=== PATIENT | female | born 2000 | race Caucasian/White ===

== ENCOUNTER 2025-01-21 14:23 | Outpatient (CLI) | payer BC, SELFPAY ==
[2025-01-22 19:09] LABS: Strep B DNA Probe Negative (Negative)
[2025-01-22 21:06] LABS: Strep B Susceptibility Needed? No
== END 2025-01-21 14:24 | disposition home or self-care (01) ==
PROVIDERS: Visit Provider Registered Nurse
DX: Z34.83 Encounter for supervision of other normal pregnancy, third trimester (principal); Z67.40 Type O blood, Rh positive
CPT/HCPCS: 84443; 86703; 86900; 86901; 87081; 87653

== ENCOUNTER 2025-02-06 17:40 | Inpatient (IN) | payer BC, SELFPAY ==
[2025-02-06] VITALS (57 sets, daily range): BP systolic 91–138; BP diastolic 54–76; PULSE 69–108; RESP 16–20; TEMP 36.6–36.9; O2SAT 93–100; BMI 51.1
[2025-02-06 17:25] LABS: Appearance Urine Slightly Cloudy (Clear); Bilirubin Urine Negative (Negative); Blood Urine Negative (Negative); Color Urine Yellow (Yellow); Glucose Urine Negative (Negative); Ketones Urine Negative (Negative); Leukocyte Esterase Urine 1+ (Negative); Nitrite Urine Negative (Negative); Protein Urine Trace (Negative); Urobilinogen Urine 0.2 (0.2-1.0)
[2025-02-06 17:31] LABS: Amnisure Rom* POSITIVE
[2025-02-06 17:35] LABS: RBC Urine 0-2 (0-2); Squamous Epithelial Cell Urine Moderate (None-Few)
[2025-02-06 17:36] LABS: Bacteria Urine Few
--- NOTE | 2025-02-06 18:04 | W.PM.LDBA ---
Subjective History of Present Illness Narrative: Patient is being admitted to Labor and Delivery for PROM at term. She is a 24 year old -0-0-1 woman at 37 weeks, 5 days gestation. She reports loss of fluid at around 6 PM on 02/05. Her AmniSure is positive here today. She is not having contractions. Her full history and physical was dictated by Dr. Razo on 01/29/25. Please see this for details. Specific Issues/Plans G 2 P 1001 Spouse: Jose Manuel Daughter: Carmita Baby: Boy! Gallito H&P by [facility] on 01/29/25 TRANSFER of Care from [facility] at 35 & 3/7 weeks gestation on 01/21/25 Need varicella antibody testing: [] # Desires permanent sterilization [email or web address] insurance # Obesity. Pre- BMI 46 Taking daily low dose aspirin Level 2 US: See imaging below Never made appt for Nutrition consult Anesthesia referral placed Weekly testing starting at 34 weeks Growth US at 28 and 34 weeks Delivery during week 39 # Hypothyroidism. Taking 188mcg levothyroxine. Follows with Endocrinology. Needs to establish with new [employer] or Primary Care Provider, as hers is out of network. 08/28/2024: TSH 2.22 10/08/2024 TSH 1.92 11/28/2024: TSH 2.05 /01/2024: TSH 1.8 # History of hemorrhage Quantity blood loss 1661 mL. Treated with Methergine, Hemabate, Cytotec, Loraine and vaginal packing. Removed PPD 1 w/ no further excessive bleeding optimize iron stores in Consider TXA at time of delivery #?Anemia per patient. Taking qod iron supplement Hgb on 01/21: 11.9. # Mesocardia US on 11/20 technically challenging. Slight meso cardia, otherwise normal echocardiogram. Plan: No further cardiology follow-up is needed unless new concerns arise. Continue routine care with primary Ob. From cardiology standpoint, the patient may deliver at the center of her choice with routine care for baby after . Following hospital discharge, baby should have an echocardiogram along with outpatient cardiology visit within the 1st few months. # Possible macrosomia: EFW 98%, AC greater than 99%. Projected EFW at 39 weeks: 4415 gr. Growth next visit at 38 weeks Previous medical records show: 07/16/2024: Chlamydia negative, gonorrhea negative, Antibody screen negative, hemoglobin 12.1, platelets 377, hemoglobin A1c 5.2, treponemal nonreactive, hepatitis-B surface antigen nonreactive, hepatitis-B surface antibody nonreactive, hepatitis-B core antibody nonreactive, hepatitis-C antibody nonreactive, rubella immune, urine culture less than 10,000 CFU per mL mixed bacterial growth, 08/09/2024 NIPT/savage: Low risk 08/28/2024: TSH 2.22 10/08/2024 TSH 1.92 11/28/2024: TSH 2.05 12/18/2023: TSH 1.8 11/28/2024: one hour glucose: 100, Hemoglobin 10.7, platelets 288, Syphilis negative 08/22/2022: Pap smear NILM 12/26/2024: Tdap Ultrasounds: 07/15/2024: Single IUP, 8 weeks 3 days. EHR 178 be p.m.. 08/20/2024: [facility] [place] first-trimester ultrasound: Intrauterine at 13 weeks 3 days. The nuchal area appears normal. Ultrasound agrees with assigned LILLIAN 02/22/2025. anatomy appears normal for gestational age. Image quality and detail limited by gestational age. Inadequate/grossly normal views noted above. No adnexal masses identified. Recommendations: An IPS was low risk. All women should be offered MS AFP 15-18 weeks. An early anatomic survey has up to 60-70% detection rate for anomalies. The above survey is reassuring. A detailed exam with FE near 20 weeks is still recommended due to BMI. 10/14/2024: [facility] [place] OB detailed anatomy: Intrauterine at 21 weeks 3 days. None of the anomalies commonly detected by ultrasound were evident in the detailed anatomic survey described above. Inadequate views noted above. echocardiogram appears normal in limited views obtained. No markers for aneuploidy seen. biometry is consistent with gestational age. The amniotic fluid volume appeared normal. Normal cervical length. No evidence of placenta previa. Recommendations: Follow-up [facility] [place] ultrasound at 26 weeks to finish anatomic survey and monitor growth. Subsequent growth ultrasounds every 4-6 weeks due to pre gravid BMI greater than 40. Consider weekly testing starting at 34 weeks due to pre gravid BMI greater than 40. Continue routine care with primary OB provider. 11/12/2024: [facility] [place] Ob growth ultrasound: Intrauterine at 25 weeks 3 days. Appearance of meso cardia (cardiac axis 22 deg) and dextro position. CTCR 0.51. No other anomalies identified; specifically, diaphragm and lung tissue appear normal to extent seen, but visualization is technically challenging due to maternal habitus and positioning. biometry is consistent with gestational age. The amniotic fluid volume appeared normal. No evidence of placenta previa. Recommendations: Please see separate note for details of counseling. echocardiogram by Pediatric Cardiology scheduled 11/20/2024. Follow-up ultrasound with [facility] [place] at 30 weeks to monitor growth and attempt completion of anatomic survey. Anticipate subsequent growth ultrasounds at 34-36 weeks. Weekly testing starting at 34 weeks due to pre gravid BMI greater than 40. Continue routine care with OB provider. 11/20/2024: Technically challenging study limited by maternal body habitus and position. Some views suggest slight meso cardia. Stomach leftward. Atrial situs solitus. Atrioventricular concordance and ventriculoarterial concordance. Biphasic in flow across both the tricuspid and mitral valves. No tricuspid or mitral insufficiency. Widely patent aortic valve and pulmonary valve, normal velocity. Patent foramen ovale with normal right toleft flow. Normal three vessel view with left aortic arch. Difficult visualization of aortic arch, but appears to be widely patent aortic arch in sagittal images. At least 1 left and 1 right pulmonary vein are seen returning to the left atrium by color and spectral Doppler. The superior vena cava and inferior vena cava drain into the right atrium. Normal ductus venous waveform obtained today. Qualitatively normal cardiac chamber size, wall thickness, and by ventricular contractility. No pericardial or pleural effusion. Normal heart rate and rhythm. Color and spectral Doppler were performed. 12/17/2024: [facility] [place] follow-up growth: Intrauterine at 30 weeks 3 days. No anomalies noted. Follow-up anatomic views appear normal. biometry is large for gestational age. The amniotic fluid volume appeared normal. No evidence of placenta previa. Recommendations: [facility] [place] growth ultrasound at 34 weeks. Weekly testing starting at 34 weeks due to pre gravid BMI greater than 40. Continue routine care with primary Ob 01/09/2025: [facility] [place] follow-up growth intrauterine at 33 weeks 5 days. No major anomalies noted. Mild appearance of meso cardia but measures within normal limits. The anatomic survey was completed on today's exam. biometry is large for gestational age. EFW 98 percentile pain, AC greater than 99%. Projected EFW at 39 weeks: 4415 gr. Amniotic fluid appeared normal. No evidence of placenta previa. Recommendation: Weekly testing starting at 34 weeks due to pre gravid BMI greater than 40. Per Pediatric Cardiology, baby to have an echocardiogram along with outpatient cardiology visit in the 1st few months of life. Continue routine care with primary Ob. OB - Problem Based A/P Additional Plan (1) PROM (premature rupture of membranes): Status: Acute (2) macrosomia during in third trimester: Status: Acute (3) cardiac anomaly complicating , antepartum: Problem details: Possible meso cardia Status: Acute (4) History of hemorrhage: Status: Acute Plan 1. PPROM at term. Favorable cervix. Rupture of forebag on exam with copious fluid. Begin pitocin for augmentation of labor. Continuous monitoring. Epidural as desired. 2. History of hemorrhage. CBC, type and cross 2 units now. Will plan for TXA and quick use of other uterotonic agents after delivery if bleeding warrants 3. Possible macrosomia. Blessedly, she is in labor prior to 38 weeks. We will avoid operative vaginal delivery for arrest of descent. 4. mesocardia. Defer to peds for echo as . Delivery/Labor/Induction Plan Induction method: per pitocin protocol OB Exam Physical Exam Vital signs: Temp Pulse Resp BP Pulse Ox 98.5 F 90 18 110/57 L 98 02/06/25 16:41 02/06/25 16:52 02/06/25 16:41 02/06/25 16:52 02/06/25 16:53 Narrative: Physical exam: General: No acute distress Psych: Alert and oriented x3, full affect HEENT: Normocephalic, atraumatic Heart: Regular rate and rhythm, no murmur rub or gallop Lungs: Clear to auscultation bilaterally Abdomen: Soft, nontender, gravid, large pannus overhanging lower abdomen. Lower extremities: No edema or erythema Pelvic exam: Cervix 3 / 80 / -1 / midposition / soft, vertex Forebag ruptures on exam, spilling copious clear fluid Unable to trace heart rate with Novii. Scalp lead placed wtih pateit consent. Basline 140 / accelerations to 180 / no decelerations / moderate variability
[2025-02-06 19:12] LABS: Basophils Absolute Auto 0.02 K/uL (0.00-0.30); Basophils Percent Auto 0.2 % (0.0-3.0); Eosinophils Absolute Auto 0.09 K/uL (0.00-0.50); Eosinophils Percent Auto 0.9 % (0.0-7.0); Hematocrit 37.2 % (33.0-51.0); Hemoglobin* 12.4 gm/dL (12.0-16.0); Immature Granulocytes Abs Auto 0.16 K/uL (0.00-0.30); Immature Granulocytes Pct Auto 1.6 %; Lymphocytes Absolute Auto 2.28 K/uL (0.90-2.90); Lymphocytes Percent Auto 22.6 % (20-44); Mean Corpuscular HGB Conc 33 gm/dL (32-36); Mean Corpuscular Hemoglobin 29 pg (26-34); Mean Corpuscular Volume 86 fL (80-100); Monocytes Percent Auto 7.2 % (0.0-11.0); Neutrophils Absolute Auto 6.83 K/uL (1.7-7.0); Neutrophils Percent Auto 67.5 % (42.0-72.0); Platelet Count* 288 K/uL (140-440); RDW Coefficient of Variation % 13.8 % (11.5-15.5); Red Blood Count 4.33 m/uL (4.00-5.20); White Blood Count* 10.11 K/uL (4.50-11.00)
[2025-02-06 19:13] LABS: Slide Review Reflex No
[2025-02-06] MEDS: OXYTOCIN 30 unit/500 ML in NS 30 UNIT/500 ML BAG IVPB (19:46)
[2025-02-06] MEDS: LACTATED RINGERS 1000 ML 1,000 ML 125 ML IV (19:46)
[2025-02-06] MEDS: ROPIVACAINE 0.2% 100 ml 100 ML 12 MG EPIDURAL (21:39)
[2025-02-06] MEDS: LIDOCAINE 2% (PF) 5 ML VIAL EPIDURAL (21:40)
[2025-02-06] MEDS: ROPIVACAINE 0.2 % PF 10 ML INJ 20 MG EPIDURAL (21:40)
--- NOTE | 2025-02-06 21:45 | PM.ANBPRC ---
PFSH PFS Surgical History (Updated 01/24/25 @ 12:49 by Stephanie Barba, BEAU) Cr[place] teeth extracted ?K08.409 - Partial loss of teeth, unspecified cause, unspecified class (ICD-10) S/P LASIK surgery ?Z98.890 - Other specified postprocedural states (ICD-10) Social History (Updated 01/21/25 @ 14:10 by Kelli Austin MA) What is your current living situation?: I presently have a place to live Problems where you live: no known problems In the past 12 months, utilities in danger of being shut off: no In past 12 months, lack of transportation kept you from medical appts, meetings, work, or getting things needed for daily living: no In the past 12 mos, have been you worried that your food would run out before you had money to buy more?: never true In the past 12 mos, the food you bought just didn't last and you didn't have money to buy more?: never true Smoking Status: Former smoker How often does anyone, including family, friends and others, physically hurt you: never How often does anyone, including family, friends and others, insult or talk down to you: never How often does anyone, including family, friends and others, threaten you with harm: never How often does anyone, including family, friends and others, scream or curse at you: never Meds Home Medications and Allergies Home Medications ?Medication ?Instructions ?Recorded ?Confirmed ?Type aspirin 81 mg tablet,delayed 81 mg PO QDAY 01/21/25 02/06/25 History release (Adult Low Dose Aspirin) docosahexaenoic acid 200 mg 200 mg PO DAILY 01/21/25 02/06/25 History capsule ( DHA) levothyroxine 100 mcg tablet 100 mcg PO DAILY 01/21/25 02/06/25 History levothyroxine 88 mcg tablet 88 mcg PO DAILY 01/21/25 02/06/25 History ferrous gluconate 240 mg (27 mg 240 mg PO .every other day 02/05/25 02/06/25 History iron) tablet (Ferate) Allergies Allergy/AdvReac Type Severity Reaction Status Date / Time No Known Drug Allergies Allergy Verified 02/06/25 17:19 Results Labs Labs: Laboratory Results - last 24 hr 02/06/25 02/06/25 17:03 19:00 WBC 10.11 RBC 4.33 Hgb 12.4 Hct 37.2 MCV 86 MCH 29 MCHC 33 RDW Coeff of Gale 13.8 Plt Count 288 Neut % (Auto) 67.5 Lymph % (Auto) 22.6 [place] % (Auto) 7.2 Eos % (Auto) 0.9 Baso % (Auto) 0.2 Neut # (Auto) 6.83 Lymph # (Auto) 2.28 [place] # (Auto) 0.70 Eos # (Auto) 0.09 Baso # (Auto) 0.02 Abs Immat Gran (auto) 0.16 Imm/Tot Granulo (auto) 1.6 Urine Color Yellow Urine Appearance Slightly Cloudy A Urine pH 7.0 Ur Specific [place] 1.020 Urine Protein Trace A Urine Glucose (UA) Negative Urine Ketones Negative Urine Blood Negative Urine Nitrite Negative Urine Bilirubin Negative Urine Urobilinogen 0.2 Ur Leukocyte Esterase 1+ A Urine RBC 0-2 Urine WBC 5-10 A Ur Squamous Epith Cells Moderate A Urine Bacteria Few A Membrane Rupture POSITIVE Blood Type O Positive Antibody Screen NEGATIVE Crossmatch (AHG) See Detail Vital Signs Vital Signs: Last Vital Signs Temp 98.5 F 02/06/25 16:41 Pulse 93 02/06/25 21:44 Resp 18 02/06/25 16:41 BP 130/65 02/06/25 21:44 Pulse Ox 98 02/06/25 21:42 Weight: 135.171 kg Height: 162.56 cm Anesthesia Procedures Epidural Insertion Patient Location: OB Start Time: 21:00 Stop Time: 21:46 Start Date: 02/06/25 Stop Date: 02/06/25 Reason for Block: procedure for pain Patient Position: sitting Performed By: Emmanuel Ferreira Preanesthetic Checklist: IV checked, risks and benefits discussed, surgical consent, monitors and equipment checked, pre-op evaluation, timeout performed and anesthesia consent Prep: chlorhexidine gluconate Monitoring: blood pressure monitoring, continuous pulse oximetry and heart rate Approach: midline Vertebral Space: lumbar (1-5) Epidural Technique: BRUNO air Needle Type: Tuohy needle Injection Technique: continuous catheter Needle gauge: 17 Needle Length (cm): 10 cm Needle Insertion Depth (cm): 9 Catheter Gauge: 19 Catheter Type: multi-orifice Catheter at skin depth (cm): 15 Test Dose Result: negative and lidocaine 1.5% with epinephrine 1 to 200,000
[2025-02-06] MEDS: LACTATED RINGERS 1000 ML 1,000 ML 955 ML IV (21:49)
[2025-02-06] MEDS: ONDANSETRON 2 MG/ML inj 4 MG IV (22:38)
[2025-02-07] VITALS (34 sets, daily range): BP systolic 94–128; BP diastolic 51–76; PULSE 68–101; RESP 16–20; TEMP 36.5–36.8; O2SAT 92–100
[2025-02-07] MEDS: OXYTOCIN 30 unit/500 ML in NS 30 UNIT/500 ML BAG 300 UNIT IVPB (01:40)
[2025-02-07] MEDS: TRANEXAMIC ACID 100 MG/ML INJ 1000 MG IV (01:44)
[2025-02-07] MEDS: miSOPROStoL 800 MCG/4 TABLET PR (02:05)
--- NOTE | 2025-02-07 02:30 | W.PM.VAGDEL1 ---
Procedure Delivery date: 02/07/25 Procedure Done: [employer] Procedure Details: The patient is a 24 year-old G 2 P 1-0-0-1 woman admitted on 02/06/2025 at 37 Weeks, 5 Days gestation for apparent premature rupture membranes at term.? Cervical exam on admission was 3 / 80 / -1 / midposition / soft with membranes palpably intact but with a positive AmniSure test, in vertex presentation.? She had no regular contractions.? heart rate demonstrated baseline 140 bpm with moderate variability, positive accelerations, none decelerations; a category 1 tracing.? She reported leakage of fluid beginning around 6:30 p.m. on 02/05/2025. Rupture of forebag occurred at time of admission exam with clear fluid noted. ? Labor Analgesia:? Epidural ? Pitocin:? Yes ? Complete:? 1:12 a.m. on 02/07/2025 ? Pushing:? 1:21 a.m. ? heart tones during second stage were reassuring. ? At 1:42 a.m. a viable male infant delivered in vertex direct OA presentation over small first-degree perineal laceration via spontaneous vaginal delivery.? The infant's head did deliver indirect 0 a presentation, and I had some difficulty in restituting the infant's head with maternal legs flexed and her head down. I opted to deliver the posterior shoulder, which was the 's left, in order to rotate the 's body. This was accomplished easily and quickly. Infant was placed on maternal abdomen.? Cord was clamped and cut after a 30-60 second delay.? Nose and mouth were bulb suctioned.? weight pending.? 8 at 1 minute and 9 at 5 minutes.? Shoulder dystocia: No; the need to deliver the posterior arm came more from positional dystocia.? Nuchal cord: No. ? Placenta delivered spontaneously at 2:04 a.m. with a 3 vessel cord. I was uncertain of the completeness of the placental disc. Given this, and her history of hemorrhage, I opted to manually explore her uterus. I donned a new set of sterile gloves. I did not palpate any obvious placental fragments. She was given 2 g of cefazolin thereafter in prophylaxis against infection. ? Mother and were stable after delivery. ? Lacerations:? Small first-degree perineal, repaired with 3-0 Vicryl. ? Blood loss: 600 mL. Blood loss measurement type: QBL She was given oxytocin after delivery of the infant, as well as tranexamic acid, given her history of hemorrhage. After delivery of the placenta, I opted to also give her 800 mcg of rectal misoprostol. ? Sponge and needles counts are correct. Events: Prolonged Rupture of Membrane Intrapartal Events: Labor Induction Delivery monitor: internal FHT Route of delivery: Laceration description: Perineal - 1st Degree Delivery repair: Vicryl Estimated blood loss (mL): 600 Anesthesia type: Epidural
[2025-02-07] MEDS: CEFAZOLIN 3 GM in 0.9 % SODIUM CHLORIDE Mini-bag 100 ML IVPB (04:12)
[2025-02-07 06:30] LABS: Hemoglobin* 10.8 gm/dL (12.0-16.0)
[2025-02-07] MEDS: ACETAMINOPHEN 500 MG TABLET 1000 MG PO ×2 (07:26→19:24)
[2025-02-07] MEDS: DOCUSATE SODIUM 100 MG CAPSULE PO (08:20)
--- NOTE | 2025-02-07 10:47 | PM.ANPOST ---
Post Anesthesia Note Post Anesthesia Note Patient seen: Inpatient Respiratory Status: adequate Cardiovascular Status: adequate Mental Status: baseline Pain: adequate Temp: baseline Anesthetic awareness: N/A Complications: none Follow care: none
[2025-02-07] MEDS: IBUPROFEN 600 MG TABLET PO (11:27)
[2025-02-07] MEDS: LEVOTHYROXINE 88 MCG TABLET PO (11:31)
[2025-02-07] MEDS: LEVOTHYROXINE 100 MCG TABLET PO (11:32)
[2025-02-08] VITALS: BP 110/74; PULSE 83; RESP 18; TEMP 36.9; O2SAT 97
[2025-02-08 07:05] LABS: Hemoglobin* 10.8 gm/dL (12.0-16.0)
[2025-02-08] MEDS: DOCUSATE SODIUM 100 MG CAPSULE PO (08:11)
[2025-02-08] MEDS: IBUPROFEN 600 MG TABLET PO (08:11)
--- NOTE | 2025-02-08 08:55 | PM.OBDSVD1 ---
DS: Providers Provider Date Seen: 02/08/25 Date of admission: 02/06/25 17:40 Primary care physician: Not a Local Provider Admitting Clinician: Ashley Duarte MD Attending Physician on discharge: Yomi Gonzalez MD DS: Diagnosis Discharge Diagnosis (1) (spontaneous vaginal delivery): Status: Acute (2) Anemia: Status: Acute (3) Hypothyroidism: Status: Acute (4) cardiac anomaly complicating , antepartum: Status: Acute Problem details: Possible meso cardia Exam Narrative: Exam Narrative: VITAL SIGNS: As noted above. GENERAL APPEARANCE: Alert, cooperative female in no acute distress. MOOD & AFFECT: Normal. ABDOMEN: Soft, non-distended and nontender. Well contracted uterus at umbilicus. : Normal lochia. EXTREMITIES: Well perfused. Nontender. Const: Vital Signs, click to edit/add: Vital Signs - 24 hr 02/07/25 13:47 02/07/25 16:45 02/07/25 20:01 Temperature 98.1 F 97.7 F 97.8 F Pulse Rate [Pulse Oximeter] 71 71 72 Respiratory Rate 16 16 18 Blood Pressure [Le ft Arm] 116/76 103/67 94/60 Pulse Oximetry 98 97 97 Oxygen Delivery Me thod Room Air Room Air 02/08/25 00:00 Temperature 98.5 F Pulse Rate [Pulse Oximeter] 83 Respiratory Rate 18 Blood Pressure [Le ft Arm] 110/74 Pulse Oximetry 97 Oxygen Delivery Me thod Room Air OB - DS: Summary Hospital Course Hospital Course: The patient is a 24 year old G 2 P 2002 at 376/7 weeks gestation that was admitted to the Center on 02/06/25 for delivery after premature rupture of membranes. She had an uncomplicated vaginal delivery. She delivered a viable male . She is bottle feeding. the patient has done well. Peripartum Data Infant delivery method: Vaginal Laceration description: Perineal - 1st Degree complications: none [place] Infant Gender: Male Status at Discharge Functional status at discharge: independent ambulation Overall status at discharge: patient is progressing back to baseline Time Spent with Patient Time attestation: Total time spent providing and/or coordinating discharge services: Time spent: Less than 30 minutes Discharge Plan Discharge Disposition: Home, Self-Care Date of Admission: 02/06/25 17:40 Attending Provider on Discharge: Celeste Gonzalez Primary Care Provider: Provider,Not a Local Condition: Stable Anticipated Discharge Date/Time: 02/08/25 08:58 Discharge Medications: New acetaminophen 500 mg Tablet 1,000 mg PO Q6H PRNQty: 30 0RF ibuprofen 600 mg Tablet 600 mg PO Q6H PRNQty: 30 0RF Continued levothyroxine 100 mcg tablet 100 mcg PO DAILY levothyroxine 88 mcg tablet 88 mcg PO DAILY DHA 200 mg capsule 200 mg PO DAILY ferrous gluconate [Ferate] 240 mg (27 mg iron) tablet 240 mg PO .every other day Discontinued aspirin [Adult Low Dose Aspirin] 81 mg tablet,delayed release (DR/EC) 81 mg PO QDAY Discharge Orders: Discharge Order (Routine); Ordered 02/08/25 Ordered By: Celeste Gonzalez Patient Education: OB Vaginal/Bottle Feeding Activity Level: Activity as Tolerated Activity Detail: Nothing vaginally for 6 weeks Discharge Diet: Regular Follow Up Appointments: Provider,Not a Local [Primary Care Provider, Family Practice] Forms: [facility] Info Instructions
[2025-02-08 08:57] VITALS: BP 108/70; PULSE 69; RESP 16; TEMP 36.7; O2SAT 96
[2025-02-08] MEDS: LEVOTHYROXINE 88 MCG TABLET PO (09:02)
[2025-02-08] MEDS: LEVOTHYROXINE 100 MCG TABLET PO (09:02)
[2025-02-08 13:44] LABS: Rapid Plasma Reagin (RPR) Reactive (Non Reactive)
[2025-02-10 08:17] LABS: Treponema pallidum AbTP-PA Non Reactive (Non Reactive)
== END 2025-02-08 10:34 | disposition home or self-care (01) | DRG 560 ==
LOC: OB OUT 17:50 → OB 17:50
PROVIDERS: Admitting Provider Obstetrics & Gynecology; Visit Provider Obstetrics & Gynecology
DX: O42.02 Full-term premature rupture of membranes, onset of labor within 24 hours of rupture (principal); O35.BXX0 Maternal care for other (suspected) fetal abnormality and damage, fetal cardiac anomalies, not applicable or unspecified; O36.63X0 Maternal care for excessive fetal growth, third trimester, not applicable or unspecified; O70.0 First degree perineal laceration during delivery; O99.214 Obesity complicating childbirth; E66.9 Obesity, unspecified; O99.284 Endocrine, nutritional and metabolic diseases complicating childbirth; E03.9 Hypothyroidism, unspecified; Z3A.37 37 weeks gestation of pregnancy; Z37.0 Single live birth
CPT/HCPCS: 01967; 36415; 81001; 81003; 84112; 85018; 85025; 86592; 86593; 86780; 86850; 86900; 86901; 86922; 87086; A9270; J0690; J2405; J2795; J7120

== ENCOUNTER 2025-03-21 10:12 | Outpatient (CLI) | payer BC, SELFPAY | END 2025-03-21 10:13 | disposition home or self-care (01) | PROVIDERS: Visit Provider Registered Nurse | DX: E03.9 Hypothyroidism, unspecified (principal); Z39.2 Encounter for routine postpartum follow-up | CPT/HCPCS: 84443; 86787 ==

== ENCOUNTER 2025-07-28 20:39 | Emergency (ER) | payer BC, SELFPAY ==
--- OUTSIDE RECORDS SUMMARY | 2025-07-28 20:42 | XMS_ITS | Clinical Summary ---
Author Organization [facility] Address [address], [place] [address] Care Team Providers Care Concaving Machine Operator Name Role Phone Amari Valencia APRN, BEAU Primary Care Provide r Source Comments You are receiving this document as you are listed as the primary care provider,follow-up provider, or the patient has been referred to you for consultation.This is in compliance with the Medicare andMedicaid EHR Incentive Program,which states Providers who transition their patient to another setting of careor provider of care or refers their patient to another provider of care shouldprovide summary care record for each transition of care or referral. [facility] Allergies No known active allergies Medications MedicationSigDispense QuantityRefillsLast FilledStart DateEnd DateStatus clindamycin (CLEOCIN T) 1 % gel Indications:Hidradenitis SuppurativaApply topically twice daily to areas of sores Indications: Hidradenitis Suppurativa 75 g 4054Active Vit-DSS-Fe Fum-FA ( 19) Active Mamxnrp-Jsuafypux-Ahxuyuj D (CALCIUM 1200+D3 OR) Active aspirin 81 MG chewable tablet Chew and swallow 1 Tablet (81 mg) by mouth daily.Active levothyroxine (SYNTHROID) 88 MCG tablet TAKE 1 TABLET (88 MCG) BY MOUTH DAILY. TAKE AT LEAST ONE HOUR BEFORE OR TWO HOURS AFTER MEAL. TOTALOF 188 MCG DAILY. 90 Tablet 104504/6Active levothyroxine (SYNTHROID) 100 MCG tablet TAKE 1 TABLET (100 MCG) BY MOUTH DAILY. TAKE AT LEAST ONE HOUR BEFORE OR TWO HOURS AFTER MEAL. TOTAL OF 188 MCG DAILY. 90 Tablet 504/6Active Active Problems ProblemNoted DateDiagnosed DateSupervision of high risk in third rlhstxtci16/03/2024History of /03/2024Hidradenitis iealrywkdyz26/06/2024Family history of heart ooybzpj1412/18/2023hronic lymphocytic wgqkilkhetf58/02/2020Morbid obesity, unspecified obesity type 03/21/20175878Cpwdbgumbeezgx02/07/2003 Overview (05/24/2020): Hypothyroidism Acquired Resolved Problems ProblemNoted DateDiagnosed DateResolved DatePostpartum fnteqmglts77/26/2023 12/18/2023Full-term PROM with onset of labor within 24 hours of rupture /01/2024Supervision of high risk in first trimester Immunizations ImmunizationAdministration DatesNext Yxv3vSLU (Gardasil 9)06/08/2017,11/25/2016, 10/17/2016Adult RSV Cowqvni43/20/3537KRqV62/10/2004,10/25/1999,1998, 1998,1998DTaP/Hib10/25/1999Flu Vac (3+ yrs)05/04/2009,07/14/2008 F2G6-Axnybhodfh39/12/2010HepB Adult (Engerix-B, 20+ yrs, 3 dose series) 03/22/1999,1998,1998HepB Ped/Adol (0-18 yrs)03/22/1999Hib (ActHIB) 10/25/1999,1998,1998,1998IPV (Polio)12/22/2003,10/25/1999, 1998,1998Influenza IIV4 (Quadrivalent) 0.5mL (32590)07/29/2022, 08/15/2019Influenza LAIV (Nasal, 2-49 yrs)05/04/2009,07/14/2008Influenza, Unspecified Wjfperhaomc78/21/2009,07/14/2008MCV4 (Menactra)03/18/2014MCV4 Menveo 2m.+ (two vial)10/17/2016,03/18/2014MMR12/22/2003,06/30/1999Pneumococcal 7, PED 06/27/2000RV5 (RotaTeq, Oral)1998,1998Rotavirus, Unspecified Yhojkklutbc79/19/1999,1998Tdap12/26/2024,06/07/2023,07/23/2021,03/03/2011 Ufpkraiyi78/14/2008,06/30/1999 Family History Medical HistoryRelationNameCommentsHeart DiseaseBirth FatherPeteRecently had 6 way bypass.Heart SurgeryBirth FatherPeteHigh CholesterolBirth FatherPete HypertensionBirth FatherPeteAsthmaBirth MotherPeggyHeart MurmurBirth MotherPeggy High CholesterolBirth MotherPeggyNo Known ProblemsDaughterBlairAlzheimer's Maternal GrandfatherHigh CholesterolMaternal GrandfatherDiabetesMaternal GrandmotherPatriciaHigh CholesterolMaternal GrandmotherPatriciaStrokeMaternal GrandmotherPatriciaThyroid DisorderMaternal GrandmotherPatriciaDiabetesPaternal GrandfatherHigh CholesterolPaternal GrandfatherUnknownPaternal GrandmotherNo Known ProblemsSisterCancer, BreastNegative Family HistoryCancer, ColonNegative Family HistoryCancer, OvaryNegative Family HistoryDVT/PENegative Family History RelationNameStatusCommentsBirth FatherPeteAliveBirth MotherPeggyAliveDaughter BlairAliveMaternal GrandfatherAliveMaternal GrandmotherPatriciaAlivePaternal GrandfatherDeceasedPaternal GrandmotherDeceasedSisterAlive Social History Tobacco UseTypesPacks/DayYears UsedDateSmoking Tobacco: EeodobXhbqbevqhu0Iztp: 08/14/2022Smokeless Tobacco: Never Tobacco Cessation:Counseling Given: Not Answered Comments:Smoked cigarettes for a year. Then continued to vape. Alcohol UseStandard Drinks/WeekCommentsNot Currently0 (1 standard drink = 0.6 oz pure alcohol)PHQ-2AnswerDate RecordedPHQ-2 Sfluy782Financial Resource StrainAnswerDate RecordedIs it hard for you to pay for the very basics like food, housing, medical care or heating?No12/14/2023Food InsecurityAnswerDate RecordedDoes your food run out before you have the money to buy more?No 12/14/2023Transportation NeedsAnswerDate RecordedDoes a lack of transportation keep you from your medical appointments or from getting your medications?No 12/14/2023ostpartum DepressionAnswerDate RecordedLast EPDS Total Score0 09/16/2024Last EPDS Self Harm ResultNot on file09/16/2024CommentsNoSex and Gender InformationValueDate RecordedSex Assigned at BirthNot on fileLegal LusMwkzlv17/17/2015 1:57 PM CDTGender IdentityNot on fileSexual OrientationNot on fileOccupationIndustryJob Start DateJob End DateHomemakerNot on fileNot on fileNot on file Last Filed Vital Signs Vital SignReadingTime TakenCommentsBlood Napeulkn960/6805 8:44 AM CDT Shmhy723101/09/2025 8:44 AM IJQYdyaotxuyjz26.6 ??C (97.9 ??F)04/26/2010 8:02 AM CDTORAL C: 36.6 CRespiratory Ypet122604/26/2010 8:02 AM CDTOxygen Aqzikptjcc101% 04/29/2008 8:49 AM CDTInhaled Oxygen Concentration--Augysg127.5 kg (290 lb) 01/09/2025 8:44 AM SMGJeqack672.1 cm (5' 5)09/10/2024 3:27 PM CSTBody Mass Index48.26009/10/2024 3:27 PM FLOOR COVERINGS SALESPERSON Plan of Treatment Health MaintenanceDue DateLast DoneCommentsCOVID-19 Vaccine ( season) 2025Influenza Vaccine (#1)/, 08/15/2019, 05/04/2009, Additional history existsCervical Cancer Yragbdsjj54/04/2023 (Completed), 08/15/2019 (Completed)Adult Preventive Visit/01/2024 DTaP/Tdap/Td Vaccine (10 - Tdap)/, 06/07/2023, 07/23/2021, Additional history existsZoster/Shingles Vaccine (1 of 2)2048HepB Vaccine Ngnymfjuz16/09/1999, 03/22/1999, 1998, Additional history existsHib JviknxgJfavpietk67/13/2000, 10/25/1999, 1998, Additional history exists Pneumococcal VaccineAged Out06/27/2000No longer eligible based on patient's age to complete this topicIPV (Polio) WazcgbeCtwinujtq54/10/2004, 10/25/1999, 1998, Additional history existsVaricella WefpupmHrpmcgqsw45/14/2008, 06/30/1999MCV4 PfgdidfBjgmbottk81/06/2017, 03/18/2014, 03/18/2014HPV Vaccine Vzrvzcjya35/26/2017, 11/25/2016, 10/17/20165152YkbhbetuyNdyuvyacybgi10/03/2024, 12/18/2023, 12/19/2022, Additional history existsHIV Screening (Preventive Services)Knxsqznrh14/03/2024, 12/19/2022Hep C Screening (Preventive Services) Pdexqgrzp19/03/2024, 12/19/2022HepA VaccineAged OutNo longer eligible based on patient's age to complete this topicMeningococcal B VaccineAged OutNo longer eligible based on patient's age to complete this topic Procedures Procedure NamePriorityDate/TimeAssociated DiagnosisCommentsCHLAMYDIA & GC (14 YEARS & OLDER)Lyowhdb1107/16/2024 10:43 AM FLOOR COVERINGS SALESPERSON Supervision of high risk in first trimester HIV 1/2 AG/AB 4TH MMGDcgcjhf68/03/2024 10:26 AM FLOOR COVERINGS SALESPERSON Supervision of high risk in first trimester HEPATITIS C ANTIBODY, WITH REFLEX (ANTI-HCV)Zhcikms9107/16/2024 10:26 AM FLOOR COVERINGS SALESPERSON Supervision of high risk in first trimester from Last 3 Months or Most Recently Relevant to Health Maintenance Results * Chlamydia & GC (14 Years and Older): Vagina (07/16/2024 10:43 AM FLOOR COVERINGS SALESPERSON)Component ValueRef RangeTest MethodAnalysis TimePerformed AtPathologist Signature Chlamydia Trachomatis STDNot DetectedNot Dmulqtro41/04/2024 1:53 AM FLOOR COVERINGS SALESPERSON [facility]. gonorrhoeae STDNot DetectedNot Ilvdwkdt92/04/2024 1:53 AM [facility]ST[facility] LABSpecimen (Source)Anatomical Location / LateralityCollection Method / VolumeCollection TimeReceived TimeSwab STD SPECIMEN FROM VAGINA / UnknownNon-blood Collection / Iqtgcbb0407/16/2024 10:43 AM CST07/16/2024 10:57 AM FLOOR COVERINGS SALESPERSON Narrative [facility] - 07/17/2024 1:53 AM FLOOR COVERINGS SALESPERSON Test performed by Supervisor Self Service Store Mediated Amplification (TMA). Authorizing ProviderResult TypeResult StatusRossy Bingham APRN, CNPLAB_1Final ResultPerforming OrganizationAddressCity/State/ZIP CodePhone Number [facility] [address] * HIV 1/2 Ag/Ab 4th Generation (07/16/2024 10:26 AM FLOOR COVERINGS SALESPERSON)ComponentValueRef Range Test MethodAnalysis TimePerformed AtPathologist SignatureHIV 1/2 Antigen/Antibody (4th generation)Negative (Non Reactive)Negative (Non Reactive)07/16/2024 5:25 PM CSTMETHODIST LABORATORYComment:HIV-1 p24 Antigen and HIV-1/HIV-2 Antibody not detectedSpecimen (Source)Anatomical Location / LateralityCollection Method / VolumeCollection TimeReceived TimeBlood Venipuncture / Bteiizi8107/16/2024 10:26 AM CST07/16/2024 10:26 AM FLOOR COVERINGS SALESPERSON Narrative Authorizing ProviderResult TypeResult StatusRossy Bingham APRN, CNPLAB_1Final ResultPerforming OrganizationAddressCity/State/ZIP CodePhone Number [facility] [address] [place] [address], [facility] * Hepatitis C Antibody, with Reflex (07/16/2024 10:26 AM FLOOR COVERINGS SALESPERSON)ComponentValueRef RangeTest MethodAnalysis TimePerformed AtPathologist SignatureHepatitis C AntibodyNegative (Non Reactive)Negative (Non Reactive)07/16/2024 5:25 PM FLOOR COVERINGS SALESPERSON [facility]ORATORYComment:Antibodies to HCV not detected. Does not exclude the possiblity of exposure to HCV.Specimen (Source)Anatomical Location / LateralityCollection Method / VolumeCollection TimeReceived TimeBlood Venipuncture / Ddypbpf7407/16/2024 10:26 AM CST07/16/2024 10:26 AM FLOOR COVERINGS SALESPERSON Narrative Authorizing ProviderResult TypeResult StatusCadaniel Bingham APRN, CNPLAB_1Final ResultPerforming OrganizationAddressCity/State/ZIP CodePhone Number [facility] [address] from Last 3 Months or Most Recently Relevant to Health [place] [address] Care Teams Team MemberRelationshipSpecialtyStart DateEnd Date Amari Valencia APRN, OBSTETRICIAN/GYNECOLOGIST [address] [address] PCP - GeneralNkvein Ctbyydhosprb32/27/24
--- OUTSIDE RECORDS SUMMARY | 2025-07-28 20:42 | XMS_ITS | Clinical Summary ---
Author Organization [facility] Address [address] [place] [address] Care Team Providers Care Channeler Insole Name Role Phone Rachana Mcdowell APRN PRODUCTION ENGINEER Unavailable + Jac Espinoza MD Unavailable [phone] Lupis Tirado MD Unavailable [phone] No Ref-Primary, Physician Primary Care Provider Allergies No known active allergies Medications MedicationSigDispense QuantityRefillsLast FilledStart DateEnd DateStatus aspirin 81 MG EC tablet Take 1 tablet by mouth dailyActive Vit-Fe Fumarate-FA ( PLUS) 27-1 MG TABS Take 1 tablet by mouth dailyActive levothyroxine (SYNTHROID/LEVOTHROID) 175 MCG tablet Indications:Thyroid cyst,Hypothyroidism, unspecified typeTake 175 mcg X 6 days a week and SKIP X 1 day a week. 90 tablet 4Active Active Problems ProblemNoted DateDiagnosed Date state, vlhfblwxgo32/01/2023Thyroid cyst 06/29/2022trophy of iqwbsxz6312/16/2021bnormal thyroid yxwaqgtnio45/05/2022 Chronic lymphocytic royoifxsdce90/02/2020Morbid obesity, unspecified obesity type03/21/2017Hypertrophic scar03/03/5171Mmjb35/21/9134Axyzztfptwebul46/20/2010 Resolved Problems ProblemNoted DateDiagnosed DateResolved DateMorbid ioktubw73 Ndupszssll28/21/ObesityClosed fracture of metacarpal bone Overview (05/14/2015): Problem list name updated by automated process. Provider to review Bcaitephpkchzx58 Overview (05/14/2015): Problem list name updated by automated process. Provider to review Immunizations ImmunizationAdministration DatesNext DueDTAP (<7y)12/22/2003,10/25/1999, 1998,1998,1998Flu, Funsuuxqeka25/21/2009,07/14/2008HIB (PRP-T) 10/25/1999,1998,1998,1998HPV11/25/2016,10/17/2016HPV9 (Gardasil)06/08/2017HepB03/22/1999,1998,1998Hepatitis B, Adult (Energix-B/Recombivax HB)03/22/1999,1998,1998Hepatitis B, Peds (Engerix-B/Recombivax HB)03/22/1999Influenza (H1N1)08/25/2009Influenza (IIV3) PF 05/04/2009,07/14/2008Influenza Vaccine >6 months,quad, PF07/29/2022,08/15/2019 MMR (MMRII)12/22/2003,06/30/1999Meningococcal ACWY (Menactra??)03/18/2014 Meningococcal ACWY (Menveo??)10/17/2016,03/18/2014Nasal Influenza Vaccine 2-49 (FluMist)05/04/2009,07/14/2008Pneumococcal (PCV 7)06/27/2000Poliovirus, inactivated (IPV)12/22/2003,10/25/1999,1998,1998Rotavirus, Rzbbjqdauub91/19/1999,1998Rotavirus, Unspecified Ldldknaojbg00/19/1999, 1998TDAP (Adacel,Boostrix)07/23/2021,03/03/2011TDAP Vaccine (Boostrix) 03/03/2011TRIHIBIT (DTAP/HIB, <7y)10/25/1999Varicella (Varivax)08/27/2007, 06/30/1999 Family History Medical HistoryRelationCommentsHyperlipidemiaFatherHypertensionFather CardiovascularMaternal GrandfatherHeart DiseaseMaternal Grandfather HyperlipidemiaMaternal GrandfatherHypertensionMaternal GrandfatherAsthmaMaternal GrandmotherDiabetesMaternal GrandmotherHyperlipidemiaMaternal Grandmother HypertensionMaternal GrandmotherRespiratoryMaternal GrandmotherasthmaThyroid DiseaseMaternal GrandmotherAsthmaMotherHyperlipidemiaMotherRespiratoryMother asthmaDiabetesPaternal GrandfatherHyperlipidemiaPaternal GrandfatherHypertension Paternal GrandfatherThyroid DiseasePaternal GrandfatherCerebrovascular Disease Paternal GrandmotherDiabetesPaternal GrandmotherOther - See CommentsSister 1 ovarian cystOther - See CommentsSister 2killed by motorcyclistRelationStatus CommentsFatherAliveMaternal GrandfatherAliveMaternal GrandmotherAliveMotherAlive Paternal GrandfatherAlivePaternal GrandmotherDeceasedSister 1AliveSister 2 Social History Tobacco UseTypesPacks/DayYears UsedDateSmoking Tobacco: FormerCigarettesQuit: 2Smokeless Tobacco: Never Tobacco Cessation:Counseling Given: Not Answered Comments:vaping (quit vaping in 2021) Alcohol UseStandard Drinks/WeekCommentsYes0 (1 standard drink = 0.6 oz pure alcohol)Drink on occasionPHQ-2AnswerDate RecordedPHQ-2 Xxcan260 Adolescent EducationAnswerDate RecordedGetting School Help NeededNot on file 3CommentsNoSex and Gender InformationValueDate RecordedSex Assigned at ImjzpUvhczn46/15/2021 1:13 PM CSTLegal ViiPwfinh61/04/2012 3:41 AM CSTGender AxsniaieDtltpz33/15/2021 1:13 PM CSTSexual OrientationStraight 06/28/2021 1:13 PM CSTOccupationIndustryJob Start DateJob End DateMotoprimoNot on fileNot on fileNot on file Last Filed Vital Signs Vital SignReadingTime TakenCommentsBlood Ptfvenzj042/6707/29/2023 9:26 PM NURSE ORTHOPEDIC Hdehq171907/29/2023 9:26 PM MBZFswrznvroeq94.9 ??C (98.4 ??F)07/29/2023 6:36 PM CSTRespiratory Esil827309/29/2022 6:36 PM CSTOxygen Ihfonvbabg978%07/29/2023 9:36 PM CSTInhaled Oxygen Concentration--Eiztmp568.9 kg (260 lb)10/03/2023 10:24 AM VFPBaborv801.8 cm (5' 4.49)06/14/2023 9:25 AM CDTBody Mass Index43.9611 9:25 AM CDT Plan of Treatment Health MaintenanceDue DateLast DoneCommentsANNUAL REVIEW OF HM UZHVRT6707/29/2023 07/29/2022, 07/23/2021YEARLY PREVENTIVE VISIT/, 07/23/2021, 08/15/2019, Additional history existsPHQ-2 (once per calendar year)2024 10/03/2023, 03/14/2023, 08/22/2022, Additional history existsTSH W/FREE T4 TUQXTH81504/, 12/06/2023, 09/18/2023, Additional history exists INFLUENZA VACCINE (#1)/, 08/15/2019, 08/25/2009, Additional history ragqspDQY78//04/2023, 08/15/2019ADVANCE CARE OEWAKKXC22/02/2027 2DTAP/TDAP/TD VACCINE (10 - Td or Tdap)31, 07/23/2021, 03/03/2011, Additional history existsZOSTER VACCINE (1 of 2) 2048HEPATITIS B DUDXCIPXjzpqwgue31/09/1999, 03/22/1999, 03/22/1999, Additional history existsMENINGITIS MFMPQJAZnhuzcvno49/06/2017, 03/18/2014, 03/18/2014HPV XUPYHSILlsdkzwid28/26/2017, 11/25/2016, 10/17/2016PNEUMOCOCCAL VACCINE: PEDIATRICS (0 to 5 YEARS) AND AT-RISK PATIENTS (6 to 49 YEARS)Aged Out 08/24/2021 (Declined), 06/27/2000No longer eligible based on patient's age to complete this topicCHLAMYDIA HEGRWQYJCJrtkjvotkpcu65/08/2023, 03/25/2019, 04/19/2017HEPATITIS C XVKXZLSQJKfdfilmmqqos02/08/2023HIV SCREENINGDiscontinued 12/19/2022RSV TCTZBJRAsvsisptfdpc78/20/2023OVID-19 VACCINEDiscontinued Procedures Procedure NamePriorityDate/TimeAssociated KnyjnnfcjFewcxfrqVAOSadizts02/24/2024 10:43 AM CDT Thyroid cyst Hypothyroidism, unspecified type GYNECOLOGIC BGMIDVXRVaujvth38/09/2023 4:33 PM NURSE ORTHOPEDIC Cervical cancer screening CHLAMYDIA TRACHOMATIS LLDKEJI5303/25/2019 5:57 PM CDT Pelvic pain in female from Last 3 Months or Most Recently Relevant to Health Maintenance Results * TSH (12/06/2023 10:43 AM CDT)ComponentValueRef RangeTest MethodAnalysis Time Performed AtPathologist SignatureTSH2.770.30 - 4.20 uIU/mL12/07/2023 2:44 PM CDTUU LABORATORYSpecimen (Source)Anatomical Location / LateralityCollection Method / VolumeCollection TimeReceived TimeBloodBLOOD SPECIMEN / Unknown Venipuncture / Osaaqho2912/06/2023 10:43 AM CDT12/06/2023 10:43 AM CDT Narrative Authorizing ProviderResult TypeResult StatusLupis Tirado MDLAB - BLOOD ORDERABLESFinal ResultPerforming OrganizationAddressCity/State/ZIP CodePhone Number [facility] [address] [facility] [facility] [address], [address] [place] [address], [facility] * Pap Screen only - recommended age 21 - 24 years (08/22/2022 4:33 PM NURSE ORTHOPEDIC) ComponentValueRef RangeTest MethodAnalysis TimePerformed AtPathologist SignatureInterpretationNegative for Intraepithelial Lesion or Malignancy (NILM)08/25/2022 1:28 PM CST[facility] at 1328 CSTComment Papanicolaou Test Limitations: Cervical cytology is a screening test with limited sensitivity, and regular screening is critical for cancer prevention. Pap tests are primarily effective for the diagnosis/prevention of squamous cell carcinoma, not adenocarcinoma or other cancers. 08/25/2022 1:28 PM CST[facility] LABSSpecimen AdequacySatisfactory for evaluation, endocervical/transformation zone component mitufzw6908/25/2022 1:28 PM CSTUM [facility]TY LABSClinical Tuyeoflpmplytfh47/12/2023 1:28 PM CSTUM SPECIALTY LABSReflex OojzjatTh61/12/2023 1:28 PM CST[facility]TY LABSPrevious Abnormal?No 08/25/2022 1:28 PM CST[facility]TY LABSPerforming LabsThe technical component of this testing was completed at [facility] Zdzmycpgtz14/12/2023 1:28 PM [facility]ST[facility] LABSSpecimen (Source) Anatomical Location / LateralityCollection Method / VolumeCollection Time Received TimeBrushingCERVIX UTERI STRUCTURE / UnknownNon-blood Collection / Oimbccm2308/22/2022 4:33 PM CST08/22/2022 5:33 PM NURSE ORTHOPEDIC Narrative Authorizing ProviderResult TypeResult StatusRachana Mcdowell APRN CNPLAB - BEAKER APFinal ResultPerforming OrganizationAddressCity/State/ZIP CodePhone Number [facility] [address] [facility] [address], [address] [place] [address], [facility] [phone] * Chlamydia trachomatis PCR (03/25/2019 5:57 PM CDT)ComponentValueRef RangeTest MethodAnalysis TimePerformed AtPathologist SignatureSpecimen DescriptionVagina 03/25/2019 5:58 PM CDTFUNITED HOSPITALChlamydia Trachomatis PCR NegativeNEG^Nhpnikjw92/13/2019 12:14 PM CDTINFECTIOUS DISEASES DIAGNOSTIC LABORATORYComment: Negative for C. trachomatis rRNA by reefer engineer mediated amplification. A negative result by reefer engineer mediated amplification does not preclude the presence of C. trachomatis infection because results are dependent on proper and adequate collection, absence of inhibitors, and sufficient rRNA to be detected. Specimen (Source)Anatomical Location / LateralityCollection Method / Volume Collection TimeReceived TimeSpecimen from vagina (specimen)03/25/2019 5:57 PM CDT03/25/2019 6:19 PM CDT Narrative Authorizing ProviderResult TypeResult StatusElan Justin GASTONLAB - MICRO GENERAL ORDERABLESFinal ResultPerforming OrganizationAddressCity/State/ZIP Code Phone Number [facility] [address] [place], [place] [phone] [place] [address] [address] [place], [place] [address] [phone] from Last 3 Months or Most Recently Relevant to Health Maintenance Insurance * Guarantor: ITALIA SARMIENTOAccobessy TypeRelation to PatientDate of BirthPhone Billing AddressSpecial GuarantorOther [address] [place] [address] Care Teams Team MemberRelationshipSpecialtyStart DateEnd Date No Ref-Primary, Physician PCP - Fudifea33/1/23 Rachana Mcdowell APRN PRODUCTION ENGINEER [address] [place] [address] Assigned PCP09/20/20 Jac Espinoza MD [address] [facility] [address] [place] [address] MDEndocrinology, Diabetes, and Zrroyvrunv70/13/21 Lupis Tirado MD [address] [facility] [address] [place] [address] HospitalistEndocrinology, Diabetes, and Metabolism08/25/21
--- OUTSIDE RECORDS SUMMARY | 2025-07-28 20:42 | XMS_ITS | Clinical Summary ---
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 Role Phone Staff, Other Clinical Primary Care Provider Unav ailable Allergies No known active allergies Medications MedicationSigDispense QuantityRefillsLast FilledStart DateEnd DateStatus vit/iron fum/folic ac ( 1 + 1 ORAL) Take 1 Tablet by mouth once daily.Active clindamycin 1% (CLEOCIN-T) 1 % gel Apply topically twice daily to areas of sores Indications: Hidradenitis Elhbkjpsuif24/20/2023ctive levothyroxine (SYNTHROID) 100 mcg tablet Take 188 mcg/day (100+ 88)03/14/2023ctive levothyroxine (SYNTHROID) 88 mcg tablet Take 188 mcg/day (100+ 88)03/14/2023ctive acetaminophen (TYLENOL EXTRA STRGTH) 500 mg tablet Indications: (spontaneous vaginal delivery) (HC)Take 2 Tablets (1,000 mg) by mouth every 6 hours if needed for Pain. Max acetaminophen dose: 4000mgin 24 hrs. ctive ibuprofen (ADVIL; MOTRIN) 200 mg tablet Take 3 Tablets (600 mg) by mouth every 6 hours. For 5 days. Take with food. Then as needed for uterine cramping/pain. Maximum of 3200 mg in 24 hours.ctive docusate (COLACE) 100 mg capsule Indications: (spontaneous vaginal delivery) (HC)Take 1 Capsule (100 mg) by mouth 2 times daily if needed for Constipation.ctive ferrous sulfate, 65 mg elemental, tablet Indications: (spontaneous vaginal delivery) (HC), anemia (HC)Take 1 Tablet (325 mg) by mouth once daily. 60 Tablet 9:39 AM CST07/11/2023ctive Active Problems ProblemNoted DateDiagnosed DateObesity affecting in third trimester 07/09/2023Full-term PROM with onset of labor within 24 hours of rupture 07/09/2023ostpartum xygtwctvdt79/26/2023Supervision of high risk in first wuzfmduxs98/08/2023 Social History Tobacco UseTypesPacks/DayYears UsedDateSmoking Tobacco: NeverSmokeless Tobacco: Never Tobacco Cessation:Counseling Given: Not Answered Alcohol UseStandard Drinks/WeekCommentsNot Currently0 (1 standard drink = 0.6 oz pure alcohol)Social ConnectionsAnswerDate RecordedDo you often feel lonely or isolated from those around you?Financial Resource StrainAnswerDate RecordedDifficulty of Paying Living Zknyoiqp213/26/2023ifficulty of Paying Living ExpensesNot on file07/09/2023Food InsecurityAnswerDate RecordedDo you worry your food will run out before you are able to buy more? Transportation NeedsAnswerDate RecordedDoes lack of transportation keep you from medical appointments?oes lack of transportation keep you from work, meetings or getting things that you need?Housing StabilityAnswerDate RecordedWhat is your housing situation today?regnantCommentsNoSex and Gender InformationValueDate RecordedSex Assigned at BirthNot on fileLegal ZojCqldgh49/26/2023 7:57 AM CSTGender IdentityNot on fileSexual OrientationNot on file Obstetrics History GravidaParaTermPretermABIABSABEctopicMultipleLivingLive [id number] GATotal LaborLabor/2nd/9lzPmmxirHfvZnvgAkncNQMGtgX1C2CukmOyby31/26/5773Qzha33z4p 0h 05m0h 05m3.35 kg (7 lb 6.2 oz)FVag-SpontEpidural,PumrdzddbysEphygd44BG Marine FREY Rachael Marie, DOComplications: Hemorrhage Delivery Location:Hospital ([facility] ) Last Filed Vital Signs Vital SignReadingTime TakenCommentsBlood Vuvkicmf640/7607/29/2023 5:16 PM 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 Exrax38162/16/2023 5:16 PM POJPfvizlosdld89.7 ??C (98.1 ??F)07/29/2023 5:16 PM CSTRespiratory Arwa162109/29/2022 5:16 PM CSTOxygen Zgucvdqjut49%07/29/2023 5:16 PM CSTInhaled Oxygen Concentration--Ofzrcy335.9 kg (257 lb 12.8 oz)07/29/2023 5:16 PM SHHKgcuos904.8 cm (5' 4.5)07/09/2023 8:32 AM CSTBody Mass Index43.57 07/09/2023 8:32 AM MACHINE ATTENDANT Plan of Treatment Health MaintenanceDue DateLast DoneCommentsTetanus lsflyjb4106/11/2009Depression screening for age 12+2010MI (ht and wt on same day) for age 18+2016 Hepatitis C screening for age 18-7906/11/2016Hepatitis B series for 19+ (1 of 3 - 19+ 3-dose series)2017Pap test for age 21-6506/11/2019COVID-19 vaccine series ( - 2024- season)2025Influenza Vaccine (#1)2025HPV series for age 9-45 (1 - 3-dose SCDM series)2025HIV for age 15-65Completed 12/19/2022neumococcal series for age 6-49Aged OutNo longer eligible based on patient's age to complete this topic Procedures Procedure NamePriorityDate/TimeAssociated DiagnosisCommentsHIV EXTERNALRoutine 12/19/2022 12:13 PM CDT from Last 3 Months or Most Recently Relevant to Health Maintenance Results * HIV EXTERNAL (12/19/2022 12:13 PM CDT)ComponentValueRef RangeTest Method Analysis TimePerformed AtPathologist SignatureEXTERNAL HIVNegativePARK NICOLL CLINICSSpecimen (Source)Anatomical Location / LateralityCollection Method / VolumeCollection TimeReceived TimeBloodBLOOD SPECIMEN / Unknown Narrative Authorizing ProviderResult TypeResult StatusCarly N Thiner NPLABORATORYFinal ResultPerforming OrganizationAddressCity/State/ZIP CodePhone Number [facility] [address] [place] [address] from Last 3 Months or Most Recently Relevant to Health Maintenance Insurance Advance Directives * Full Code (Latest Code Status on File) Date ActivatedDate OjeioncuecuRbatbmxa90/26/2023 12:41 PM07/11/2023 12:50 PM QuestionAnswerCommentsCode Status Discussion:* Reviewed Preferences Care Teams Team MemberRelationshipSpecialtyStart DateEnd Date Staff, Other Clinical . PCP - Vmstutb67/26/23
[2025-07-28 20:56] VITALS: BP 128/81; PULSE 70; RESP 18; TEMP 36.6; O2SAT 98; BMI 48.1
--- NOTE | 2025-07-28 20:59 | CRLHL7_ITS ---
For Patients: As a result of the Century Cures Act, medical imaging exams and procedure reports are released immediately into your electronic medical record. You may view this report before your referring provider. If you have questions, please contact your health care provider. Indication: Right foot pain after injury. Technique: Three views of the right foot. Comparison: None. Findings/Impression: There is soft tissue swelling of the foot most pronounced dorsally and laterally. No acute fracture, dislocation, or suspicious osseous lesion identified. Lisfranc alignment is grossly within normal limits. Dictated by Filiberto Garcia MD @ 07/28/2025 9:33:33 PM (Electronically Signed)
--- NOTE | 2025-07-28 21:26 | ED.NURSE ---
pt given ice pack for foot
--- NOTE | 2025-07-28 21:44 | ED.GENADULT ---
HPI - General Adult General Chief complaint: Extremity Pain/Injury, Lower Stated complaint: Rolled right ankle Time Seen by Provider: 07/28/25 21:44 History of Present Illness HPI narrative: pt reports right foot pain . pt rolled ankle, heart a pop. event happened around 1630. No meds taken. pt able to move toes, not able to stand without increased pain to foot. 25-year-old woman presenting to the emergency department following an injury to her right ankle. Recurred to half to 3 hours prior to this interview. She heard a pop after rolling her ankle. Marked pain with standing. Seems to be more in the right foot where she is having pain then actually the ankle. No other injuries were sustained. Related Data Previous Rx's ?Medication ?Instructions ?Recorded levothyroxine 100 mcg tablet 100 mcg PO DAILY #90 tabs 03/31/25 levothyroxine 88 mcg tablet 88 mcg PO DAILY #90 tabs 03/31/25 levonorgestrel-ethinyl estradiol 1 tab PO QDAY #84 tabs 06/05/25 0.1 mg-20 mcg tablet (Aviane) sertraline 100 mg tablet 100 mg PO QDAY #90 tabs 06/05/25 Allergies Allergy/AdvReac Type Severity Reaction Status Date / Time No Known Drug Allergies Allergy Verified 06/05/25 08:03 Review of Systems Status of ROS: Reports: 6 or more systems reviewed and unremarkable except as noted in History and below [facility] Medical History (Updated 08/12/25 @ 00:01 by Background Daemon) History of hemorrhage ?Z87.59 - Personal history of other complications of , childbirth and the puerperium (ICD-10) cardiac anomaly complicating , antepartum ?O35.BXX0 - Maternal care for other (suspected) abnormality and damage, cardiac anomalies, not applicable or unspecified (ICD-10) macrosomia during in third trimester ?O36.63X0 - Maternal care for excessive growth, third trimester, not applicable or unspecified (ICD-10) PROM (premature rupture of membranes) ?O42.90 - Premature rupture of membranes, unspecified as to length of time between rupture and onset of labor, unspecified weeks of gestation (ICD-10) (spontaneous vaginal delivery) ?O80 - Encounter for full-term uncomplicated delivery (ICD-10) Anemia ?D64.9 - Anemia, unspecified (ICD-10) Surgical History (Updated 01/24/25 @ 12:49 by Stephanie Barba CNP) [place] teeth extracted ?K08.409 - Partial loss of teeth, unspecified cause, unspecified class (ICD-10) S/P LASIK surgery ?Z98.890 - Other specified postprocedural states (ICD-10) Social History (Updated 01/21/25 @ 14:10 by Kelli Austin MA) What is your current living situation?: I presently have a place to live Problems where you live: no known problems In the past 12 months, utilities in danger of being shut off: no In past 12 months, lack of transportation kept you from medical appts, meetings, work, or getting things needed for daily living: no In the past 12 mos, have been you worried that your food would run out before you had money to buy more?: never true In the past 12 mos, the food you bought just didn't last and you didn't have money to buy more?: never true Smoking Status: Former smoker How often does anyone, including family, friends and others, physically hurt you: never How often does anyone, including family, friends and others, insult or talk down to you: never How often does anyone, including family, friends and others, threaten you with harm: never How often does anyone, including family, friends and others, scream or curse at you: never Exam Narrative: Exam Narrative: Icing Pleasant. NAD. Skin is warm and dry. Breathing easily. No pain to palpation about the malleoli of the ankle. Most pain and some swelling appears to be at the distal lateral foot. Not discrete tenderness at the base of the 5th metatarsal. No navicular tenderness. No bruising on the plantar foot. Pain difficulty with extension of the toes. I do not appreciate defect of the tendons. Const: Vital Signs, click to edit/add: Vital Signs - 24 hr 07/28/25 20:56 Temperature 97.8 F Pulse Rate [Left P ulse Oximeter] 70 Respiratory Rate 18 Blood Pressure [Ri ght Upper Arm] 128/81 Pulse Oximetry 98 Oxygen Delivery Me thod Room Air Documenting provider has reviewed patient's vital signs: yes Course Vital Signs Vital signs: Initial Vital Signs Temperature 97.8 F 07/28/25 20:56 Temperature Source Temporal Artery Scan 07/28/25 20:56 Pulse Rate 70 07/28/25 20:56 Pulse Rhythm Regular 07/28/25 20:56 Respiratory Rate 18 07/28/25 20:56 Blood Pressure 128/81 07/28/25 20:56 Blood Pressure Mean 96 07/28/25 20:56 Blood Pressure Position Sitting 07/28/25 20:56 Pulse Oximetry 98 07/28/25 20:56 Oxygen Delivery Method Room Air 07/28/25 20:56 Vital Signs Temperature 97.8 F 07/28/25 20:56 Pulse Rate 70 07/28/25 20:56 Respiratory Rate 18 07/28/25 20:56 Blood Pressure 128/81 07/28/25 20:56 Pulse Oximetry 98 07/28/25 20:56 Oxygen Delivery Method Room Air 07/28/25 20:56 Temperature 97.8 F 07/28/25 20:56 Pulse Rate 70 07/28/25 20:56 Respiratory Rate 18 07/28/25 20:56 Blood Pressure 128/81 07/28/25 20:56 Pulse Oximetry 98 07/28/25 20:56 Oxygen Delivery Method Room Air 07/28/25 20:56 Medical Decision Making MDM Narrative Medical decision making narrative: In busy emergency department x-ray had been ordered appropriately of the right foot prior to my seeing this patient. I think has had minimum of foot sprain. Differential would include Lisfranc injury or metatarsal fracture. X-ray of the right foot three view independently reviewed by me appears to show normal alignments. I do not see acute bony abnormality. Radiology over-read below Indication: Right foot pain after injury. Technique: Three views of the right foot. Comparison: None. Findings/Impression: There is soft tissue swelling of the foot most pronounced dorsally and laterally. No acute fracture, dislocation, or suspicious osseous lesion identified. Lisfranc alignment is grossly within normal limits. Dictated by Filiberto Garcia MD @ 07/28/2025 9:33:33 PM She is anxious to have really good mobility with regard a kid care. Perhaps short walking boot would be helpful Dispensed walking boot, crutches. See patient discharge plan for further discussion See handout on rehabilitation for foot sprain. I do think that the walking boot is a little much but I understand your desire to have most mobility possible as soon as possible. Would anticipate your foot feeling a little bit better every couple of days. Use the crutches also to take some of the weight off or essentially rest your foot. Elevate your foot. Ice it 2-3 times daily over the next few days. Can take up to 800 mg of ibuprofen or up to 1000 mg of acetaminophen per dose. Follow-up is simply not improved in 7-10 days. Medical Records Medical records reviewed: Yes I reviewed the patient's medical records Discharge Plan Discharge Clinical Impression: Foot sprain, Acute foot pain Patient Disposition: Home w/ Parent or Adult Condition: Improved Additional Instructions: See handout on rehabilitation for foot sprain. I do think that the walking boot is a little much but I understand your desire to have most mobility possible as soon as possible. Would anticipate your foot feeling a little bit better every couple of days. Use the crutches also to take some of the weight off or essentially rest your foot. Elevate your foot. Ice it 2-3 times daily over the next few days. Can take up to 800 mg of ibuprofen or up to 1000 mg of acetaminophen per dose. Follow-up is simply not improved in 7-10 days. Prescriptions: No Action levonorgestrel-ethinyl estrad [Aviane] 0.1-20 mg-mcg tablet 1 tab PO QDAY Qty: 84 3RF sertraline 100 mg tablet 100 mg PO QDAY Qty: 90 3RF levothyroxine 88 mcg tablet 88 mcg PO DAILY Qty: 90 3RF Rx Instructions: 188mcg daily levothyroxine 100 mcg tablet 100 mcg PO DAILY Qty: 90 3RF Rx Instructions: 188mcg daily Follow Up/Referrals: Provider,Not a Local [Primary Care Provider, Family Practice] Stand Alone Forms: [employer] Info Instructions
--- NOTE | 2025-07-28 22:48 | ED.NURSE ---
boot fitted. crutches fitted. pt ambulated without difficulty.
== END 2025-07-28 22:55 | disposition home or self-care (01) ==
PROVIDERS: Emergency Provider Family Medicine
DX: S93.601A Unspecified sprain of right foot, initial encounter (principal); X50.1XXA Overexertion from prolonged static or awkward postures, initial encounter
CPT/HCPCS: 73630; 99283; 99284